=== PATIENT | female | born 1970 | race Caucasian/White ===

== ENCOUNTER 2021-02-10 10:40 | Emergency (ER) | payer OTHER ==
[~2021-02-10] VITALS: Ht 165.1 cm; Wt 95.3 kg
[2021-02-10] MEDS ORDERED: KETOROLAC TROMETH 60MG/2ML VIAL IM ONE (13:45)
[2021-02-10 14:06] VITALS: BP 133/61
== END 2021-02-10 14:17 | disposition home or self-care (01) ==
LOC: ER 10:40
DX: M65.241 Calcific tendinitis, right hand (principal)
CPT/HCPCS: 73110; 96372; 99283; J1885

== ENCOUNTER 2021-12-09 08:46 | Emergency (ER) | payer OTHER ==
[~2021-12-09] VITALS: Ht 165.1 cm; Wt 100.7 kg
[2021-12-09 10:21] VITALS: BP 126/77
[2021-12-09] MEDS ORDERED: KETOROLAC TROMETH 60MG/2ML VIAL IM ONE (10:45)
== END 2021-12-09 11:49 | disposition home or self-care (01) ==
LOC: ER 08:46
DX: M77.8 Other enthesopathies, not elsewhere classified (principal)
CPT/HCPCS: 29125; 73110; 96372; 99283; J1885

== ENCOUNTER 2022-02-27 17:15 | Emergency (ER) | payer OTHER ==
[~2022-02-27] VITALS: Ht 165.1 cm; Wt 113.6 kg
[2022-02-27 17:52] VITALS: BP 140/68
[2022-02-27] MEDS ORDERED: IBUPROFEN 600 MG TAB PO ONE (19:45)
[2022-02-27] MEDS ORDERED: ACETAMINOPHEN 325 MG TAB PO ONE (19:45)
== END 2022-02-27 20:39 | disposition home or self-care (01) ==
LOC: ER 17:15
DX: S69.81XA Other specified injuries of right wrist, hand and finger(s), initial encounter (principal); W05.0XXA Fall from non-moving wheelchair, initial encounter; Y93.89 Activity, other specified; Y92.89 Other specified places as the place of occurrence of the external cause; Y99.8 Other external cause status
CPT/HCPCS: 73110

== ENCOUNTER 2024-08-28 08:47 | Day surgery (SDC) | payer BC ==
[2024-08-19 10:24] LABS: Basophils # (auto) 0.1 10 ^3/uL (0-0.2); Basophils % (auto) 1.1 % (0.0-2.0); Eosinophils # (auto) 0.2 10 ^3/uL (0-0.8); Eosinophils % (auto) 3.9 % (0.0-7.0); Hematocrit 39.1 % (36.0-46.0); Hemoglobin 12.9 g/dL (12.2-16.2); Lymphocytes % (auto) 42.3 % (10.0-50.0); Mean Corpuscular Hemoglobin 28.7 pg (28.0-32.0); Mean Corpuscular Hgb Conc. 33.2 g/dL (32.0-36.0); Mean Corpuscular Volume 86.5 fL (80.0-100.0); Monocytes # (auto) 0.3 10 ^3/uL (0-1.3); Neutrophils # (auto) 2.2 10 ^3/uL (1.6-8.6); Neutrophils % (auto) 46.7 % (37.0-80.0); Nucleated Red Blood Cells % 0.2 %; Platelet Count (auto) 343 10^3/uL (140-450); Red Blood Cells 4.52 10^6/uL (4.0-5.20); Red Cell Distribution Width 14.1 % (11.8-14.3); White Blood Cell 4.7 10^3/uL (4.4-10.8)
[2024-08-19 10:28] LABS: INR 1.02 (0.9-1.15); Partial Thromboplastin Time 31.2 SEC (24.5-34.5); Prothrombin Time 10.8 sec (9.3-11.8)
[2024-08-19 10:43] LABS: Alanine Aminotransferase 12 U/L (7-40); Alkaline Phosphatase 61 U/L (46-116); Anion Gap 6 (5-15); Aspartate Aminotransferase 20 U/L (13-40); BUN/Creatinine Ratio 14.6 (10.0-20.0); Bilirubin, Total 0.9 mg/dL (0.2-1.0); Blood Urea Nitrogen 12 mg/dL (9-23); Calcium 9.8 mg/dL (8.7-10.4); Carbon Dioxide 26 mmol/L (20-31); Glucose 79 mg/dL (74-106); Potassium 4.1 mmol/L (3.5-5.1); Sodium 140 mmol/L (136-145); Total Protein 7.2 g/dL (5.7-8.2)
[2024-08-19 10:46] LABS: Chloride 108 mmol/L (98-107)
[~2024-08-28] VITALS: Ht 165.1 cm; Wt 113.4 kg
[2024-08-28] MEDS ORDERED: SODIUM CHLORIDE LOCK 10 ML ONE (09:56)
[2024-08-28 11:52] VITALS: PULSE 67; RESP 12; O2SAT 100
[2024-08-28] MEDS: MIDAZOLAM HCL 5 MG/ML-1ML VIAL ONE (11:57)
[2024-08-28] MEDS: fentaNYL CITRATE 100 MCG/2 ML VL ONE (11:57)
[2024-08-28] MEDS: MIDAZOLAM HCL 2MG/2ML 2ml VIAL (1mg/ml) ONE (12:04)
[2024-08-28 12:51] VITALS: BP 124/70; PULSE 62; RESP 16; O2SAT 100
--- NOTE | 2024-08-29 12:10 | DVHNC2 ---
Procedure - DATE OF PROCEDURE: AUGUST 28, 2024 SURGEON: Gaurang Villalobos MD PROCEDURE PERFORMED: 1. COLONOSCOPY WITH COLD SNARE POLYPECTOMY WITH MODERATE SEDATION 2. COLONOSCOPY WITH BIOPSY WITH MODERATE SEDATION PRE-PROCEDURE DIAGNOSIS: 1. COLON CANCER SCREENING, AVERAGE RISK POSTPROCEDURE DIAGNOSIS: 1. MODERATE LEFT-SIDED DIVERTICULOSIS 2. DESCENDING COLON POLYP 3 MM REMOVED WITH BIOPSY FORCEPS 3. RECTAL POLYP 4 MM REMOVED WITH COLD SNARE POLYPECTOMY INDICATIONS FOR PROCEDURE: The patient is a 54-year old female who presents for outpatient colonoscopy. She is of average risk. SEDATION GIVEN: IV Versed and Fentanyl were given in incremental doses. DETAILS OF THE PROCEDURE: Informed consent was obtained after risks, benefits, and alternatives, were discussed at length with the patient. Consent was given for the procedures as well as for the sedation. Patient was placed in the left lateral decubitus position. Digital rectal exam showed internal hemorrhoids. An Olympus variable torsion pediatric colonoscope was inserted into the rectum and advanced to the cecum. The cecum was identified by the ileocecal valve in the appendiceal orifice. The scope was then withdrawn. The prep was good with only small amounts of stool. Small or flat lesions could have been missed. The patient had mild left-sided diverticulosis. The patient had two polyps, one in the descending colon removed with biopsy forceps, and another one in the cecum removed with cold snare polypectomy. There were no large polyps, masses, strictures, or arteriovenous malformations. More than 6 minutes withdrawal time was noted. Retroflexion showed 1+ internal hemorrhoids. The patient tolerated the procedure well. Colonoscopy start time: 1204 Colonoscopy cecum time: 1208 Colonoscopy in time: 1216 IMPRESSION: 1. Two colon polyps 2. Mild left-sided diverticulosis 3. Internal hemorrhoids RECOMMENDATIONS: 1. Follow up with biopsies and procedure results of the colonoscopy in GI clinic 2. High-fiber diet 3. Repeat colonoscopy in five years unless otherwise indicated 4. Consider medical management of the hemorrhoids versus surgical referral 5. Follow up with primary care physician I would like to thank Dr. Imelda Duque for this referral. GAURANG VILLALOBOS MD Aug 29, 2024 12:10
== END 2024-08-28 12:51 | disposition home or self-care (01) ==
LOC: GI 08:47
PROVIDERS: ATTEND Specialist
DX: Z12.11 Encounter for screening for malignant neoplasm of colon (principal); K57.30 Diverticulosis of large intestine without perforation or abscess without bleeding; D12.8 Benign neoplasm of rectum; D12.4 Benign neoplasm of descending colon; Z90.710 Acquired absence of both cervix and uterus; Z98.84 Bariatric surgery status
CPT/HCPCS: 36415; 45380; 45385; 80053; 85025; 85610; 85730; 88305; J2250; J3010

== ENCOUNTER 2024-09-04 10:05 | Emergency (ER) | payer BC ==
[~2024-09-04] VITALS: Ht 165.1 cm; Wt 123.1 kg
[2024-09-04 11:26] LABS: Basophils # (auto) 0 10 ^3/uL (0-0.2); Basophils % (auto) 0.5 % (0.0-2.0); Eosinophils # (auto) 0.1 10 ^3/uL (0-0.8); Eosinophils % (auto) 1.9 % (0.0-7.0); Hematocrit 43.8 % (36.0-46.0); Hemoglobin 14.5 g/dL (12.2-16.2); Lymphocytes # (auto) 1.9 10 ^3/uL (0.4-5.4); Lymphocytes % (auto) 25.1 % (10.0-50.0); Mean Corpuscular Hemoglobin 28.8 pg (28.0-32.0); Mean Corpuscular Hgb Conc. 33.2 g/dL (32.0-36.0); Mean Corpuscular Volume 86.7 fL (80.0-100.0); Monocytes # (auto) 0.4 10 ^3/uL (0-1.3); Monocytes % (auto) 5.9 % (0.0-12.0); Neutrophils # (auto) 4.9 10 ^3/uL (1.6-8.6); Neutrophils % (auto) 66.6 % (37.0-80.0); Nucleated Red Blood Cells % 0.2 %; Platelet Count (auto) 316 10^3/uL (140-450); Red Blood Cells 5.05 10^6/uL (4.0-5.20); Red Cell Distribution Width 14.1 % (11.8-14.3); White Blood Cell 7.4 10^3/uL (4.4-10.8)
--- NOTE | 2024-09-04 11:47 | ED.PDOC ---
GI ASSESSMENT HPI Comments 54y F who presents to the ED for chief complaint of abdominal pain. Pt states she has been having abdominal pain for the past 1 week. Pt states her pain is constant, lower pelvic region, non-radiating, describing the pain as sharp, with no associated exacerbating or relieving factors. Pt states she had colonbscopy 1 week prior last Friday at and states since, she has been having intermittent abdominal pains but states the pain has become constant since last night and more severe and came to the ED for further evaluation. Pt otherwise denies any associated symptoms. Pt denies any other symptoms at this time. 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 Family History Family History: Reviewed,noncontributory to illness Social History Smoker: Non-Smoker Alcohol: Denies ETOH Use Drugs: Denies Drug Use Lives In: Home Constitutional: denies: chills, diaphoresis, fatigue, fever, malaise, sweats, weakness, others EENTM: denies: blurred vision, double vision, ear bleeding, ear discharge, ear drainage, ear pain, ear ringing, eye pain, eye redness, hearing loss, mouth pain, mouth swelling, nasal discharge, nose bleeding, nose congestion, nose pain, photophobia, tearing, throat pain, throat swelling, voice changes, others Respiratory: denies: cough, hemoptysis, orthopnea, SOB at rest, shortness of breath, SOB with excertion, stridor, wheezing, others Cardiovascular: denies: chest pain, dizzy spells, diaphoresis, Dyspnea on exertion, edema, irregular heart beat, left arm pain, lightheadedness, palpitations, PND, syncope, others Gastrointestinal: reports: abdominal pain; denies: abdomen distended, blood streaked bowels, constipated, diarrhea, dysphagia, difficulty swallowing, hematemesis, melena, nausea, poor appetite, poor fluid intake, rectal bleeding, rectal pain, vomiting, others Genitourinary: denies: abnormal vagina bleeding, burning, dyspareunia, dysuria, flank pain, frequency, hematuria, incontinence, pain, , vagina discharge, urgency, others Neurological: denies: dizziness, fainting, headache, left sided numbness, left sided weakness, numbness, paresthesia, pre-existing deficit, right sided numbness, right sided weakness, seizure, speech problems, tingling, tremors, w eakness, others Musculoskeletal: denies: back pain, gout, joint pain, joint swelling, muscle pain, muscle stiffness, neck pain, others Integumetry: denies: bruises, change in color, change in hair/nails, dryness, laceration, lesions, lumps, rash, wounds, others Allergic/Immunocompromised: denies: Difficulty Healing, Frequent Infections, Hives, Itching, others Hematologic/Lymphatic: denies: anemia, blood clots, easy bleeding, easy bruising, swollen glands, others Endocrine: denies: excessive hunger, excessive sweating, excessive thirst, excessive urination, flushing, intolerance to cold, intolerance to heat, unexplained weight gain, unexplained weight loss, others Psychiatric: denies: anxiety, bipolar disorder, depression, hopeless, panic disorder, schizophrenia, sleepless, suicidal, others All Other Systems: Reviewed and Negative Physical Exam General Appearance: Mild Distress, Normal HEENT: Normal ENT Inspection, Pharynx Normal, TMs Normal Neck: Full Range of Motion, Non-Tender, Normal, Normal Inspection Respiratory: Chest Non-Tender, Lungs Clear, No Accessory Muscle Use, No Respiratory Distress, Normal Breath Sounds Cardiovascular: No Edema, No JVD, No Murmur, No Gallop, Normal Peripheral Pulses, Regular Rate/Rhythm Breast Exam: Deferred Gastrointestinal: Abnormal Bowel Sounds, Non Tender, Soft Genitalia: Deferred Pelvic: Deferred Rectal: Deferred Extremities: No calf tenderness, Normal capillary refill, Normal inspection, Normal range of motion, Non-tender, No pedal edema Musculoskeletal : Apperance: Normal Neurologic: Alert, highway painter II-XII nml as Tested, No Motor Deficits, Normal Affect, Normal Mood, No Sensory Deficits Cerebellar Function: Normal Reflexes: Normal Skin: Dry, Normal Color, Warm Lymphatic: No Adenopathy Was a procedure done? Was a procedure done?: No GI differential Dx Differential Diagnosis: Cholecystitis, Constipation, Diverticular disease, Gastroenteritis, GI hemorrhage, UTI, Dehydration Other Differential Diagnosis SBO X-Ray, Labs, Meds, VS Vital Signs Date Time Temp Pulse Resp B/P (MAP) Pulse Ox O2 Delivery O2 Flow Rate FiO2 09/04/24 14:34 98.0 79 18 111/67 (82) 100 98.0 09/04/24 14:34 79 18 100 Room Air 0 09/04/24 14:34 Room Air* 0 21 09/04/24 11:28 99.2 73 18 124/78 (93) 100 99.2 09/04/24 10:20 99.2 90 18 121/81 (94) 98 Lab Test 09/04/24 12:54 09/04/24 11:04 Range/Units Urine Color Yellow Yellow Urine Clarity Turbid H Clear Urine pH 7.0 5.0-9.0 Urine Specific [place] 1.027 1.001-1.035 Urine Protein Trace H Negative Urine Ketones Trace Negative Urine Blood Negative Negative /uL Urine Nitrite 2+ H Negative Urine Bilirubin Negative Negative Urine Urobilinogen Normal Negative mg/dL Urine Leukocyte Esterase Negative Negative /uL Urine RBC 1 0 - 4 /hpf Urine Microscopic WBC 4 0-5 /HPF Urine Squamous Epithelial Cells Mod <5 /hpf Urine Bacteria Mod H None Seen /hpf Urine Mucus Few None Seen Urine Glucose Normal Normal mg/dL White Blood Count 7.4 4.4-10.8 10^3/uL Red Blood Count 5.05 4.0-5.20 10^6/uL Hemoglobin 14.5 12.2-16.2 g/dL Hematocrit 43.8 36.0-46.0 % Mean Corpuscular Volume 86.7 80.0-100.0 fL Mean Corpuscular Hemoglobin 28.8 28.0-32.0 pg Mean Corpuscular Hemoglobin Concent 33.2 32.0-36.0 g/dL Red Cell Distribution Width 14.1 11.8-14.3 % Platelet Count 316 140-450 10^3/uL Mean Platelet Volume 9.4 6.9-10.8 fL Neutrophils (%) (Auto) 66.6 37.0-80.0 % Lymphocytes (%) (Auto) 25.1 10.0-50.0 % Monocytes (%) (Auto) 5.9 0.0-12.0 % Eosinophils (%) (Auto) 1.9 0.0-7.0 % Basophils (%) (Auto) 0.5 0.0-2.0 % Neutrophils # (Auto) 4.9 1.6-8.6 10 ^3/uL Lymphocytes # (Auto) 1.9 0.4-5.4 10 ^3/uL Monocytes # (Auto) 0.4 0-1.3 10 ^3/uL Eosinophils # (Auto) 0.1 0-0.8 10 ^3/uL Basophils # (Auto) 0 0-0.2 10 ^3/uL Nucleated Red Blood Cells 0.2 % Sodium Level 138 136-145 mmol/L Potassium Level 3.8 3.5-5.1 mmol/L Chloride Level 106 98-107 mmol/L Carbon Dioxide Level 25 20-31 mmol/L Anion Gap 7 5-15 Blood Urea Nitrogen 12 9-23 mg/dL Creatinine 0.74 0.550-1.02 mg/dL Glomerular Filtration Rate Calc 96 >90 mL/min BUN/Creatinine Ratio 16.2 10.0-20.0 Serum Glucose 83 74-106 mg/dL Calcium Level 10.1 8.7-10.4 mg/dL Total Bilirubin 1.1 H 0.2-1.0 mg/dL Aspartate Amino Transferase (AST) 14 13-40 U/L Alanine Aminotransferase (ALT) < 9 7-40 U/L Alkaline Phosphatase 78 46-116 U/L Total Protein 7.6 5.7-8.2 g/dL Albumin 4.3 3.2-4.8 g/dL Lipase 35 12-53 U/L Current Medications Medications (Trade) Dose Ordered Sig/Josselyn Route Start Time Stop Time Status Last Admin Sodium Chloride 500 ml @ 500 mls/hr Q1H ONCE IV 09/04/24 11:15 09/04/24 12:14 DC 09/04/24 14:15 Time of 1ST Reevaluation: 12:15 Reevaluation 1ST: Unchanged Time of 2ND Reevaluation: 13:30 Reevaluation 2ND: Improved Patient Education/Counseling: Diagnosis, Treatment Family Education/Counseling: No Family Present Departure 1 Departure Time of Disposition: 13:30 Impression: Primary Impression: UTI (urinary tract infection) Additional Impression: Abdominal pain Disposition: 01 HOME / SELF CARE / HOMELESS Condition: Stable e-Prescriptions Cefdinir (Cefdinir) 300 Mg Cap 1 CAP PO BID for 7 Days, #14 CAP Prov: VAMSHI CARLTON MD 09/04/24 Discharged With: Self Critical Care Note Critical Care Time?: No Stability Stability form required: No Heart Score Heart Score: Heart Score Response (Comments) Value History N/A 0 EKG N/A 0 Age N/A 0 Risk Factors N/A 0 Troponin N/A 0 Total 0 I personally scribed for VAMSHI CARLTON MD ([email or web address]) on 09/04/24 at 11:47. Electronically submitted by Parviz Reich ([email or web address]). VAMSHI CARLTON MD Sep 04, 2024 11:47
[2024-09-04 12:00] LABS: Albumin 4.3 g/dL (3.2-4.8); Alkaline Phosphatase 78 U/L (46-116); Anion Gap 7 (5-15); Aspartate Aminotransferase 14 U/L (13-40); BUN/Creatinine Ratio 16.2 (10.0-20.0); Blood Urea Nitrogen 12 mg/dL (9-23); Calcium 10.1 mg/dL (8.7-10.4); Carbon Dioxide 25 mmol/L (20-31); Chloride 106 mmol/L (98-107); Glucose 83 mg/dL (74-106); Lipase 35 U/L (12-53); Potassium 3.8 mmol/L (3.5-5.1); Sodium 138 mmol/L (136-145)
[2024-09-04 12:01] LABS: Bilirubin, Total 1.1 mg/dL (0.2-1.0); Total Protein 7.6 g/dL (5.7-8.2)
[2024-09-04 12:10] LABS: Alanine Aminotransferase < 9 U/L (7-40)
[2024-09-04 13:17] LABS: Urine Bacteria MOD /hpf (None Seen); Urine Blood Negative /uL (Negative); Urine Clarity Turbid (Clear); Urine Color Yellow (Yellow); Urine Mucus FEW (None Seen); Urine Protein, UAD TRACE (Negative); Urine Specific Gravity 1.027 (1.001-1.035); Urine Squamous Epithelial Cell MOD /hpf (<5); Urine Urobilinogen Normal (Negative); Urine WBC 4 /HPF (0-5)
[2024-09-04] MEDS: IOHEXOL 300 MG/ML 100ML BOTTLE IJ ONE (13:58)
[2024-09-04] MEDS: SODIUM CHLORIDE 0.9% 500 ML IV ONE (14:15)
[2024-09-04 14:34] VITALS: BP 111/67; PULSE 79; RESP 18; TEMP 98; O2SAT 100
--- NOTE | 2024-09-04 15:36 | DVH ---
Exam: CT CT AB PEL WO CON-NO ORAL OR IV History: ABD PAIN S/P COLONOSCOPY Comparison Study: None available at time of dictation. TECHNIQUE: Multidetector CT of the abdomen was performed from lung bases to pubic symphysis. Imaging was performed without IV contrast. Axial, coronal and sagittal multiplanar reformats were obtained fr om the axial data set by the technologist. Radiation Dose Information: CT Dose: CTDI volume is 15.47 mGy. Dose-length product is 1435.78 mGy*cm FINDINGS: Evaluation of solid organs is limited due to lack of intravenous contrast use. Findings: Lung Bases: No acute or significant lung base finding. Normal heart size. No pleural or pericardial effusion. Liver: The liver is normal in size. No focal lesions. 2 small hypodense areas in the liver most like ly representing cysts Gallbladder and Biliary Tree: Many calcified gallstones Spleen: Unremarkable Pancreas: The pancreas is grossly normal in appearance. Adrenal Glands: Unremarkable Kidneys: Kidneys are grossly normal without calculi or hydronephrosis. Bladder: Grossly unremarkable for degree of distention. Bowel: The stomach is grossly normal in appearance. Postop changes to the stomach Small bowel and col on are normal in caliber and distribution. The appendix is not visualized; however, no secondary fin dings of acute appendicitis identified. Ascites: Absent Lymphadenopathy: No mesenteric, retroperitoneal or periportal lymphadenopathy. Abdominal Wall and Mesentery: Unremarkable. Vasculature: The visualized abdominal aorta is normal in size and caliber. Evaluation of abdominal a nd pelvic vessels is limited due to lack of intravenous contrast. Pelvic Organs: Unremarkable Musculoskeletal: No aggressive focal bony lesions, acute fractures or dislocation. Soft tissues: Unremarkable IMPRESSION: 1. No free air or free fluid 2. Small subcentimeter low-density areas in the liver may represent cysts. 3. Multiple faintly calcified gallstones in the gallbladder. Radiation optimization: All CT scans at this facility use at least one of these dose optimization clint hniques: automated exposure control mA and/or kV adjustment per patient size (includes targeted exam s where dose is matched to clinical indication) or iterative reconstruction.
[2024-09-04] MEDS ORDERED: CEFD300C2 PO (15:55)
== END 2024-09-04 16:40 | disposition home or self-care (01) ==
LOC: ER 10:05
DX: N39.0 Urinary tract infection, site not specified (principal); R10.2 Pelvic and perineal pain
CPT/HCPCS: 36415; 74176; 80053; 81001; 83690; 85025; 96360; 99284; J7040

== ENCOUNTER → 2024-11-18 | Outpatient (CLI) | payer BC ==
[~2024-11-18] MED LIST: CEFD300C2 PO
[2024-11-18 14:36] LABS: Basophils # (auto) 0 10 ^3/uL (0-0.2); Basophils % (auto) 0.7 % (0.0-2.0); Eosinophils # (auto) 0.2 10 ^3/uL (0-0.8); Hematocrit 37.8 % (36.0-46.0); Hemoglobin 12.3 g/dL (12.2-16.2); Lymphocytes # (auto) 2.4 10 ^3/uL (0.4-5.4); Lymphocytes % (auto) 44.8 % (10.0-50.0); Mean Corpuscular Hgb Conc. 32.5 g/dL (32.0-36.0); Mean Corpuscular Volume 86.2 fL (80.0-100.0); Monocytes # (auto) 0.4 10 ^3/uL (0-1.3); Monocytes % (auto) 6.9 % (0.0-12.0); Neutrophils # (auto) 2.3 10 ^3/uL (1.6-8.6); Neutrophils % (auto) 43.6 % (37.0-80.0); Platelet Count (auto) 341 10^3/uL (140-450); Red Blood Cells 4.39 10^6/uL (4.0-5.20); Red Cell Distribution Width 14.3 % (11.8-14.3); White Blood Cell 5.3 10^3/uL (4.4-10.8)
[2024-11-18 17:35] LABS: Alanine Aminotransferase 12 U/L (7-40); Albumin 4.1 g/dL (3.2-4.8); Alkaline Phosphatase 74 U/L (46-116); Anion Gap 8 (5-15); Aspartate Aminotransferase 14 U/L (13-40); BUN/Creatinine Ratio 16.7 (10.0-20.0); Blood Urea Nitrogen 13 mg/dL (9-23); Calcium 9.5 mg/dL (8.7-10.4); Carbon Dioxide 26 mmol/L (20-31); Chloride 105 mmol/L (98-107); Glucose 78 mg/dL (74-106); Potassium 3.8 mmol/L (3.5-5.1); Sodium 139 mmol/L (136-145); Total Protein 7.1 g/dL (5.7-8.2); Triglycerides 66 mg/dL (< 150)
[2024-11-18 17:36] LABS: Bilirubin, Total 0.8 mg/dL (0.2-1.0)
[2024-11-18 18:08] LABS: Cholesterol 230 mg/dL (< 200); HDL Cholesterol 91 mg/dL (40-59); LDL Cholesterol 126 mg/dL (< 100)
== END | disposition home or self-care (01) ==
LOC: LAB 13:59
PROVIDERS: ATTEND Nurse Practitioner Family
DX: E78.5 Hyperlipidemia, unspecified (principal)
CPT/HCPCS: 36415; 80053; 80061; 85025

== ENCOUNTER → 2024-12-07 | Outpatient (CLI) | payer BC ==
[2024-12-11 07:07] LABS: IgE Tri a 19(w-5 gliadin) <0.10 kU/L (Class 0); IgE Wheat <0.10 kU/L (Class 0)
== END | disposition home or self-care (01) ==
LOC: LAB 14:18
PROVIDERS: ATTEND Nurse Practitioner Family
DX: L27.2 Dermatitis due to ingested food (principal); Z91.018 Allergy to other foods
CPT/HCPCS: 86003

== ENCOUNTER 2025-06-14 10:00 | Outpatient (CLI) | payer BC ==
--- NOTE | 2025-06-14 11:59 | DVH ---
US US GUIDANCE FOR NEEDLE PLACEME, HISTORY: L BREAST BX/LUMP IN BREAST PROCEDURE: Informed consent was obtained. The patient was positioned supine on the table, and limited US was performed of the left breast. The skin overlying the biopsy site was prepped with chlorhexidine which was allowed to dry. Time out was performed. The entry site was anesthetized with 1% lidocaine. A 18 gauge Biopince needle was advanced into the mass. Multiple core biopsy samples were obtained using the 18 gauge biopsy needle. The samples were sent to formalin to pathology for analysis. A marker clip was deployed in the mass. Imaging through the biopsy site was performed. No immediate complication was identified. FINDINGS: Intra-procedural images show the biopsy needle at the lesion in the left breast at 1 o clock. No significant post biopsy hemorrhage is identified. IMPRESSION: US-guided biopsy of left breast lesion at 1 o clock. Pathology results pending.
== END 2025-06-14 17:00 | disposition home or self-care (01) ==
LOC: US 10:00
PROVIDERS: ATTEND Internal Medicine
DX: N63.21 Unspecified lump in the left breast, upper outer quadrant (principal); C50.912 Malignant neoplasm of unspecified site of left female breast; J45.909 Unspecified asthma, uncomplicated; Z17.0 Estrogen receptor positive status [ER+]; Z17.21 Progesterone receptor positive status; Z17.32 Human epidermal growth factor receptor 2 negative status; Z98.890 Other specified postprocedural states
CPT/HCPCS: 19083; 88305; 88341; 88342; 88360; A4648; 76642; 76942

== ENCOUNTER 2025-06-28 14:04 | Outpatient (CLI) | payer BC ==
[2025-06-28 14:21] LABS: Hematocrit 40.6 % (36.0-46.0); Hemoglobin 13.3 g/dL (12.2-16.2); Mean Corpuscular Hemoglobin 27.9 pg (28.0-32.0); Mean Corpuscular Volume 85.2 fL (80.0-100.0); Nucleated Red Blood Cells % 0.0 %
[2025-06-28 14:56] LABS: Alanine Aminotransferase < 9 U/L (7-40); Albumin 4.2 g/dL (3.2-4.8); Alkaline Phosphatase 89 U/L (46-116); Anion Gap 10 (5-15); BUN/Creatinine Ratio 21.6 (10.0-20.0); Bilirubin, Total 0.6 mg/dL (0.2-1.0); Blood Urea Nitrogen 16 mg/dL (9-23); Calcium 9.1 mg/dL (8.7-10.4); Carbon Dioxide 26 mmol/L (20-31); Chloride 106 mmol/L (98-107); Glucose 74 mg/dL (74-106); Potassium 3.9 mmol/L (3.5-5.1); Sodium 142 mmol/L (136-145); Total Protein 7.8 g/dL (5.7-8.2)
== END 2025-06-28 17:00 | disposition home or self-care (01) ==
LOC: LAB 14:04
PROVIDERS: ATTEND Nurse Practitioner Family
DX: C50.412 Malignant neoplasm of upper-outer quadrant of left female breast (principal)
CPT/HCPCS: 36415; 80053; 83615; 85025; 86300